=== PATIENT | male | born 1980 | race Caucasian/White ===

== ENCOUNTER 2018-10-31 17:49 | Emergency (ER) | payer OTHER ==
[~2018-10-31] VITALS: Ht 180.3 cm; Wt 97.7 kg
[~2018-10-31 17:49] MED LIST: FLUO20CA19; FLUO20CA19 PO
[2018-10-31] MEDS ORDERED: PANTOPRAZOLE 40MG INJ (PROTONIX) (C9113) IV ONE (18:15)
[2018-10-31] MEDS ORDERED: ASPIRIN 81 MG CHEW TABLET PO ONE (18:15)
[2018-10-31] MEDS ORDERED: KETOROLAC 30 MG/ML VIAL (J1885) IV ONE (18:15)
--- NOTE | 2018-10-31 18:37 | REP ---
Portable chest, 06:25 p.m., single AP semi upright view: The lung martínez are clear. The cardiac size is normal. The jeferson, mediastinum, and skeletal structures are unremarkable. Impression: Negative portable chest. Electronically Signed by Aaron Gerardo MD 10/31/2018 06:29 P
[2018-10-31 18:44] LABS: BASO # 0.1 10^3/uL (0.0-0.2); EOS # 0.2 10^3/uL (0.0-0.50); EOS % 2.8 % (0.0-3.0); HEMOGLOBIN 14.8 g/dl (13.5-17.5); LYMPH # 2.5 10^3/uL (1.5-4.5); LYMPH % 37.3 % (24.0-44.0); MEAN CORPUSCULAR HEMOGLOBIN 29.2 pg (27.0-33.0); MEAN CORPUSCULAR HGB CONC 33.6 g/dl (32.0-36.5); MONO # 0.7 10^3/uL (0.0-0.8); MONO % 10.5 % (0.0-5.0); NEUTROPHILS # 3.2 10^3/uL (1.8-7.7); NEUTROPHILS % 47.4 % (36.0-66.0); PLATELET COUNT, AUTOMATED 339 10^3/uL (150-450); RED BLOOD COUNT 5.06 10^6/uL (4.30-6.10); WHITE BLOOD COUNT 6.7 10^3/uL (4.0-10.0)
[2018-10-31 19:01] LABS: ALBUMIN 3.7 GM/DL (3.2-5.2); ALT/SGPT 38 U/L (12-78); BILIRUBIN,DIRECT < 0.1 MG/DL (0.0-0.2); BILIRUBIN,TOTAL 0.2 MG/DL (0.2-1.0); BLOOD UREA NITROGEN 15 MG/DL (7-18); CALCIUM LEVEL 9.7 MG/DL (8.5-10.1); CARBON DIOXIDE LEVEL 25 MEQ/L (21-32); CHLORIDE LEVEL 109 MEQ/L (98-107); CK-MB VALUE MASS < 1.0 NG/ML (<3.6); CPK CREATINE PHOSPHOKINASE 92 U/L (39-308); CREATININE FOR GFR 1.39 MG/DL (0.70-1.30); GLOMERULAR FILTRATION RATE > 60.0 (>60); GLUCOSE, FASTING 98 MG/DL (70-100); LIPASE 259 U/L (73-393); MB/CK RELATIVE INDEX 1.09 (< OR =4); POTASSIUM SERUM 4.2 MEQ/L (3.5-5.1); SODIUM LEVEL 139 MEQ/L (136-145); TROPONIN I < 0.02 NG/ML (< 0.10)
[2018-10-31] MEDS ORDERED: PROT1TAB2 PO (19:06)
[2018-10-31] MEDS ORDERED: GI COCKTAIL 50ML BTL(HYOSCYAMINE/MAALOX/LIDOCAINE VISCOUS)(1:3:1) PO ONE (19:15)
[2018-10-31 19:49] VITALS: BP 132/80
--- NOTE | 2018-10-31 21:37 | ECGEPIP ---
Stationary ECG Study [facility] - ED Test Date: 2018-10-31 Pat Name: JACINTO HUGHES Department: Room: - Gender: M Residential Support Worker: nikolas : 1980 Requested By: Amor Correa Order Number: [id number] Reading MD: Amor Ann Measurements Intervals [place] Rate: 71 P: 38 HI: 157 QRS: 37 QRSD: 80 T: 51 QT: 364 QTc: 398 Interpretive Statements SINUS RHYTHM POSSIBLE INCOMPLETE RIGHT BUNDLE BRANCH BLOCK SIMILAR TO 11/05/13 Electronically Signed On 10-31-2018 21:37:49 EDT by Amor Ann
== END 2018-10-31 19:54 | disposition home or self-care (01) ==
LOC: M ED 17:49
DX: K29.00 Acute gastritis without bleeding (principal); R07.89 Other chest pain; F32.9 Major depressive disorder, single episode, unspecified; F10.21 Alcohol dependence, in remission; F15.11 Other stimulant abuse, in remission; F17.200 Nicotine dependence, unspecified, uncomplicated; Z91.040 Latex allergy status; Z79.899 Other long term (current) drug therapy
CPT/HCPCS: 71045; 80048; 80076; 82550; 82553; 83690; 84443; 84484; 85025; 93005; 93041; 94760; 96374; 96375; 99284; C9113; J1885

== ENCOUNTER → 2024-09-18 | Outpatient (REF) ==
[~2024-09-18] MED LIST changes: +FLUO-365; +FLUO-365 PO; -FLUO20CA19; -FLUO20CA19 PO; +PROT1TAB2 PO
== END ==
LOC: M PLAIMG 08:04
PROVIDERS: ATTEND Internal Medicine
DX: R06.02 Shortness of breath (principal)

== ENCOUNTER 2025-01-23 07:19 | Day surgery (SDC) | payer OTHER ==
[~2025-01-23] VITALS: Ht 182.9 cm; Wt 101.2 kg
[~2025-01-23 07:19] MED LIST changes: +ALLO300T2 PO
[2025-01-23] MEDS ORDERED: MIDAZOLAM INJ 2 MG/2 ML VIAL As Ordered ONE (07:44)
[2025-01-23] MEDS ORDERED: dexAMETHasone 4 MG/ML 1 ML VIAL As Ordered ONE (07:44)
[2025-01-23] MEDS ORDERED: LIDOCAINE 2% 100 MG/5 ML SDV (FOR ANES.) As Ordered ONE (07:44)
[2025-01-23] MEDS ORDERED: ONDANSETRON 4MG 2ML VIAL As Ordered ONE (07:44)
[2025-01-23] MEDS ORDERED: ACETAMINOPHEN 1000MG/100ML IV BAG As Ordered ONE (07:45)
[2025-01-23] MEDS ORDERED: KETOROLAC 30 MG/ML 1 ML VIAL As Ordered ONE (07:45)
[2025-01-23] MEDS ORDERED: LR 1,000 ML IV SCH ×2 (08:00→10:10)
[2025-01-23] MEDS ORDERED: ceFAZolin SODIUM 2 GM in DEXTROSE 5% (D5W) ADV/MINI-BAG 50 ML IV ONE (09:05)
[2025-01-23] MEDS ORDERED: GLYCOPYRROLATE INJ 0.2 MG/ML 2 ML VIAL As Ordered ONE (09:35)
[2025-01-23] MEDS: LIDOCAINE W/EPINEPHrine 1% 20 ML VIAL As Ordered ONE (09:38)
[2025-01-23] MEDS: MORPHINE 10 MG/ML 1 ML VIAL As Ordered ONE (10:05)
[2025-01-23] MEDS ORDERED: HYDROMORPHONE HCL 0.5 MG/0.5 ML SYRINGE IV PRN (10:10)
[2025-01-23] MEDS ORDERED: ONDANSETRON 4MG 2ML VIAL IV PRN (10:10)
[2025-01-23] MEDS ORDERED: HYDR-4571 PO (10:29)
[2025-01-23] MEDS ORDERED: SUZE50TA PO (10:29)
[2025-01-23] MEDS ORDERED: ASPI81CH33 PO (10:29)
[2025-01-23 11:25] VITALS: BP 131/89; TEMP 96.9; O2SAT 97
== END 2025-01-23 11:34 | disposition home or self-care (01) ==
LOC: M SDC 07:19
PROVIDERS: ATTEND Neuromusculoskeletal Medicine, Sports Medicine
DX: M67.52 Plica syndrome, left knee (principal); M93.262 Osteochondritis dissecans, left knee; M65.962 Unspecified synovitis and tenosynovitis, left lower leg; M17.12 Unilateral primary osteoarthritis, left knee; M10.062 Idiopathic gout, left knee; Z79.899 Other long term (current) drug therapy; K21.9 Gastro-esophageal reflux disease without esophagitis; E66.9 Obesity, unspecified; Z68.33 Body mass index [BMI] 33.0-33.9, adult; F17.210 Nicotine dependence, cigarettes, uncomplicated
CPT/HCPCS: 29875; J0131; J0665; J0690; J1100; J1596; J1885; J2250; J2405; J3010

== ENCOUNTER → 2025-02-22 | Outpatient (RCR) | payer OTHER ==
[~2025-02-22] MED LIST changes: +ASPI81CH33 PO; +HYDR-4571 PO; +SUZE50TA PO
== END ==
LOC: M PT 01-25 12:27
PROVIDERS: ATTEND Neuromusculoskeletal Medicine, Sports Medicine
DX: Z47.89 Encounter for other orthopedic aftercare (principal)

== ENCOUNTER → 2025-03-09 | Outpatient (CLI) | payer OTHER | LOC: M SOG 06:49 | PROVIDERS: ATTEND Neuromusculoskeletal Medicine, Sports Medicine | DX: M67.52 Plica syndrome, left knee (principal); M93.262 Osteochondritis dissecans, left knee; M65.88 Other synovitis and tenosynovitis, other site; M25.462 Effusion, left knee ==